=== PATIENT | male | born 1965 | race Caucasian/White ===

== ENCOUNTER 2022-01-12 23:26 | Inpatient (IN) | payer SELFPAY ==
[~2022-01-12] VITALS: Ht 185.4 cm; Wt 107.6 kg
[2022-01-12 23:47] LABS: BASO % 0 % (0-3); EOS % 0 % (0-3); HEMOGLOBIN 15.7 g/dL (13.0-17.5); LYMPH # 0.9 x10^3/uL (1.0-4.8); LYMPH % 10 % (24-48); MEAN CORPUSCULAR HEMOGLOBIN 33 pg (25-35); MEAN CORPUSCULAR HGB CONC 35 g/dL (31-37); MEAN CORPUSCULAR VOLUME 96 fL (79-100); MONO # 0.9 x10^3/uL (0.0-1.1); MONO % 9 % (0-9); NEUT # 7.5 x10^3/uL (1.8-7.7); NEUT % 80 % (31-73); PLATELET COUNT 144 x10^3/uL (140-400); RED BLOOD COUNT 4.69 x10^6/uL (4.30-5.70); WHITE BLOOD COUNT 9.3 x10^3/uL (4.0-11.0)
[2022-01-12 23:55] LABS: CALCIUM 8.6 mg/dL (8.5-10.1); CREATININE 1.2 mg/dL (0.7-1.3); GFR 62.6
[2022-01-12 23:58] LABS: RBC,URINE 0 /HPF (0-2)
[2022-01-12 23:59] LABS: BACTERIA,URINE MODERATE /HPF (0-FEW)
[2022-01-13] VITALS (7 sets, daily range): BP systolic 136–169; BP diastolic 80–97
[2022-01-13] MEDS ORDERED: ONDANSETRON PF 4 MG/2 ML VIAL. IVP ONE
[2022-01-13] MEDS ORDERED: TAMSULOSIN 0.4 MG CAP.ER.24H. PO ONE
[2022-01-13 00:01] LABS: ALBUMIN 3.8 g/dL (3.4-5.0); ALBUMIN/GLOBULIN RATIO 1.1 (1.0-1.7); TOTAL BILIRUBIN 3.2 mg/dL (0.2-1.0); TOTAL PROTEIN 7.3 g/dL (6.4-8.2)
[2022-01-13] MEDS: MORPHINE SULFATE 4 MG/ML INJ. IV/SQ PRN ×2 (00:07→02:19)
--- NOTE | 2022-01-13 01:02 | PHYS DOC ---
Past Medical History Past Medical History: Kidney Stone Additional Past Medical Histor: BILATERAL KIDNEY STONES. Past Surgical History: Other Additional Past Surgical Histo: KIDNEY STONES Smoking Status: Never Smoker Alcohol Use: None General Adult EDM: Chief Complaint: FLANK PAIN HPI: HPI: Patient is a 56 year old male with history of kidney stones presenting to the ED today complaining of 8 out of 10 bilateral flank pain with nausea, no vomiting, symptoms began 2 days ago. 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 He states today his symptoms got worse he decided to come to the ED to be evaluated. He states he has not taken any of the medicines that were prescribed for him yesterday. Review of Systems: Review of Systems: Constitutional: Denies fever or chills. [] Eyes: Denies change in visual acuity. [] HENT: Denies nasal congestion or sore throat. [] Respiratory: Denies cough or shortness of breath. [] Cardiovascular: Denies chest pain or edema. [] GI: Denies abdominal pain, nausea, vomiting, bloody stools or diarrhea. [] : Reports bilateral flank pain. Denies dysuria. [] Musculoskeletal: Denies back pain or joint pain. [] Integument: Denies rash. [] Neurologic: Denies headache, focal weakness or sensory changes. [] Psychiatric: Denies depression or anxiety. [] Heart Score: C/O Chest Pain: N/A Risk Factors: Risk Factors: DM, Current or recent (<one month) smoker, HTN, HLP, family history of CAD, obesity. Risk Scores: Score 0 - 3: 2.5% MACE over next 6 weeks - Discharge Home Score 4 - 6: 20.3% MACE over next 6 weeks - Admit for Clinical Observation Score 7 - 10: 72.7% MACE over next 6 weeks - Early Invasive Strategies Current Medications: Current Medications Medications (Trade) Dose Ordered Sig/Marilynn Start Time Stop Time Status Last Admin Dose Admin Ceftriaxone Sodium (Rocephin) 1 gm 1X ONCE 01/13/22 01:30 01/13/22 01:31 Morphine Sulfate (Morphine Sulfate) 4 mg PRN Q15MIN PRN 01/12/22 23:45 01/13/22 23:44 01/13/22 00:07 4 MG Ondansetron HCl (Zofran) 4 mg 1X ONCE 01/13/22 00:00 01/13/22 00:01 DC 01/13/22 00:07 4 MG Sodium Chloride 1,000 ml @ 1,000 mls/hr 1X ONCE 01/14/22 00:00 01/14/22 00:59 01/13/22 00:00 1,000 MLS/HR Tamsulosin HCl (Flomax) 0.4 mg 1X ONCE 01/13/22 00:00 01/13/22 00:01 DC 01/13/22 00:06 0.4 MG Allergies: Allergies: Allergies Coded Allergies Type Severity Reaction Last Updated Verified ketorolac Allergy Severe Anaphylaxis 01/12/22 Yes nitroglycerin Allergy Severe Anaphylaxis 01/12/22 Yes prednisone Allergy Severe Anaphylaxis 01/12/22 Yes Physical Exam: PE: Constitutional: Well developed, well nourished, no acute distress, non-toxic appearance. [] HENT: Normocephalic, atraumatic, bilateral external ears normal, oropharynx moist, no oral exudates, nose normal. [] Eyes: PERRLA, EOMI, conjunctiva normal, no discharge. [] Neck: Normal range of motion, no tenderness, supple, no stridor. [] Cardiovascular:Heart rate regular rhythm, no murmur [] Lungs & Thorax: Bilateral breath sounds clear to auscultation [] Abdomen: Bowel sounds normal, soft, no tenderness, no masses, no pulsatile masses. [] Skin: Warm, dry, no erythema, no rash. [] Back: No tenderness, mild bilateral CVA tenderness. [] Extremities: No tenderness, no cyanosis, no clubbing, ROM intact, no edema. [] Neurologic: Alert and oriented X 3, normal motor function, normal sensory function, no focal deficits noted. [] Psychologic: Affect normal, judgement normal, mood normal. [] Current Patient Data: Labs: Laboratory Tests Test 01/12/22 23:38 01/12/22 23:43 White Blood Count 9.3 x10^3/uL (4.0-11.0) Red Blood Count 4.69 x10^6/uL (4.30-5.70) Hemoglobin 15.7 g/dL (13.0-17.5) Hematocrit 45.0 % (39.0-53.0) Mean Corpuscular Volume 96 fL (79-100) Mean Corpuscular Hemoglobin 33 pg (25-35) Mean Corpuscular Hemoglobin Concent 35 g/dL (31-37) Red Cell Distribution Width 13.0 % (11.5-14.5) Platelet Count 144 x10^3/uL (140-400) Neutrophils (%) (Auto) 80 % (31-73) H Lymphocytes (%) (Auto) 10 % (24-48) L Monocytes (%) (Auto) 9 % (0-9) Eosinophils (%) (Auto) 0 % (0-3) Basophils (%) (Auto) 0 % (0-3) Neutrophils # (Auto) 7.5 x10^3/uL (1.8-7.7) Lymphocytes # (Auto) 0.9 x10^3/uL (1.0-4.8) L Monocytes # (Auto) 0.9 x10^3/uL (0.0-1.1) Eosinophils # (Auto) 0.0 x10^3/uL (0.0-0.7) Basophils # (Auto) 0.0 x10^3/uL (0.0-0.2) Sodium Level 141 mmol/L (136-145) Potassium Level 4.0 mmol/L (3.5-5.1) Chloride Level 106 mmol/L (98-107) Carbon Dioxide Level 24 mmol/L (21-32) Anion Gap 11 (6-14) Blood Urea Nitrogen 9 mg/dL (8-26) Creatinine 1.2 mg/dL (0.7-1.3) Estimated GFR (Cockcroft-Gault) 62.6 BUN/Creatinine Ratio 8 (6-20) Glucose Level 109 mg/dL (70-99) H Calcium Level 8.6 mg/dL (8.5-10.1) Total Bilirubin 3.2 mg/dL (0.2-1.0) H Aspartate Amino Transferase (AST) 12 U/L (15-37) L Alanine Aminotransferase (ALT) 16 U/L (16-63) Alkaline Phosphatase 46 U/L (46-116) Total Protein 7.3 g/dL (6.4-8.2) Albumin 3.8 g/dL (3.4-5.0) Albumin/Globulin Ratio 1.1 (1.0-1.7) Lipase 28 U/L (73-393) L Urine Collection Type Unknown Urine Color (Auto) Yellow Urine Turbidity Hazy Urine pH (Auto) 6.5 (<5.0-8.0) Urine Specific [place] 1.012 (1.000-1.030) Urine Protein (Auto) Negative mg/dL (Negative) Urine Glucose (Auto)(UA) Negative mg/dL (Negative) Urine Ketones (Auto) 20 mg/dL (Negative) Urine Blood (Auto) Small (Negative) Urine Nitrite Positive (Negative) Urine Bilirubin (Auto) Negative (Negative) Urine Urobilinogen (Auto) Normal mg/dL (Normal) Urine Leukocyte Esterase (Auto) Large (Negative) Urine RBC 0 /HPF (0-2) Urine WBC 5-10 /HPF (0-4) Urine Bacteria Moderate /HPF (0-FEW) Laboratory Tests 01/12/22 23:38 Laboratory Tests 01/12/22 23:38 Vital Signs: Vital Signs Date Time Temp Pulse Resp B/P (MAP) Pulse Ox O2 Delivery O2 Flow Rate FiO2 01/12/22 23:30 98.6 93 18 138/86 (103) 95 Room Air 98.6 EKG: EKG: [] Radiology/Procedures: Radiology/Procedures: [] Course & Med Decision Making: Course & Med Decision Making Pertinent Labs and Imaging studies reviewed. (See chart for details) This a 56-year-old male patient with history of kidney stones presenting today complaining of bilateral flank pain, symptoms for 2 days, also complaining of nausea. Was seen at a different facility yesterday and diagnosed with kidney stones. 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 Patient is afebrile. CBC with a normal WBC, hemoglobin and hematocrit are normal. CMP with bilirubin of 3.2 otherwise no acute findings. UA positive for small amount of blood, nitrates and large amount of leukocytes. Started on Rocephin. CT of the abdomen and pelvis noted for moderate left obstructive uropathy secon krys to a 10 x 5 mm ureteral calculus just distal to the pelvic brim, bilateral nonobstructing renal calculi, urinary bladder calculus, scattered colon diverticulosis, prostatomegaly Spoke with [facility] for urologist, they will follow-up with patient tomorrow Patient admitted under Dr. Tarik Queen Disclaimer: Bernice Disclaimer: This electronic medical record was generated, in whole or in part, using a voice recognition dictation system. Departure Departure Impression: Primary Impression: Acute pyelonephritis Additional Impressions: Left ureteral calculus Bilateral kidney stones Disposition: ADMITTED INPATIENT Condition: STABLE Referrals: NO PCP (PCP) CHRISTIANA MELTON SOLVENT RECOVERER January 13, 2022 01:02
[2022-01-13] MEDS ORDERED: cefTRIAXone IV Push 1 GM VIAL. IVP ONE (01:30)
[2022-01-13] MEDS ORDERED: ONDANSETRON PF 4 MG/2 ML VIAL. IVP PRN (02:00)
--- NOTE | 2022-01-13 02:27 | NUR ---
Pt summary report sent via tube system to [address] [place] [address] at 0224. Pt expected to go to inpatient room 673.
[2022-01-13] MEDS ORDERED: IV NORMAL SALINE 1000ML BAG 1,000 ML IV ONE (02:30)
[2022-01-13] MEDS: MORPHINE SULFATE 4 MG/ML INJ. IVP PRN ×4 (03:04→14:43)
[2022-01-13] MEDS ORDERED: ACETAMINOPHEN 325 MG TABLET. PO PRN (06:30)
--- NOTE | 2022-01-13 08:20 | PDOC1 ---
History and Physical Date of Admission Date of Admission DATE: 01/13/22 TIME: 08:11 Identification/Chief Complaint Chief Complaint Left flank pain Source Source: Patient History of Present Illness History of Present Illness Mr Arias is a 56 year old male with history of kidney stones presenting to the ED overnight complaining of 8 out of 10 bilateral flank pain with nausea, no vomiting, symptoms began 2 days ago. He was seen yesterday at [facility] in [place] and diagnosed with kidney stones. 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 He notes historically has had multiple kidney stones since age 19 at least 12 procedures. Febrile to 102.8 F. CBC with a normal WBC, hemoglobin and hematocrit are normal. CMP with bilirubin of 3.2 otherwise no acute findings. UA positive for small amount of blood, nitrates and large amount of leukocytes. Started on Rocephin in ED. CT of the abdomen and pelvis noted for moderate left obstructive uropathy secondary to a 10 x 5 mm ureteral calculus just distal to the pelvic brim, bilateral nonobstructing renal calculi, urinary bladder calculus, scattered colon diverticulosis, prostatomegaly Past Medical History Renal/: Benign prostatic enlarg. Past Surgical History Past Surgical History Ureteral stenting and ESWL Family History Family History: Hypertension Social History Smoke: No ALCOHOL: rare Drugs: None Current Problem List Problem List Problems Medical Problems: (1) Acute pyelonephritis Status: Acute (2) Bilateral kidney stones Status: Acute (3) Left ureteral calculus Status: Acute Current Medications Current Medications Current Medications Sodium Chloride 1,000 ml @ 1,000 mls/hr 1X ONCE IV Last administered on 01/13/22at 00:00; Start 01/14/22 at 00:00; Stop 01/14/22 at 00:59 Ondansetron HCl (Zofran) 4 mg 1X ONCE IVP Last administered on 01/13/22at 00:07; Start 01/13/22 at 00:00; Stop 01/13/22 at 00:01; Status DC Tamsulosin HCl (Flomax) 0.4 mg 1X ONCE PO Last administered on 01/13/22at 00:06; Start 01/13/22 at 00:00; Stop 01/13/22 at 00:01; Status DC Morphine Sulfate (Morphine Sulfate) 4 mg PRN Q15MIN PRN IV/SQ PAIN GREATER THAN 3/10 Last administered on 01/13/22at 02:19; Start 01/12/22 at 23:45; Stop 01/13/22 at 23:44 Ceftriaxone Sodium (Rocephin) 1 gm 1X ONCE IVP Last administered on 01/13/22at 03:02; Start 01/13/22 at 01:30; Stop 01/13/22 at 01:31; Status DC Ondansetron HCl (Zofran) 4 mg PRN Q8HRS PRN IVP NAUSEA/VOMITING 1ST CHOICE Last administered on 01/13/22at 03:09; Start 01/13/22 at 02:00; Stop 01/13/22 at 06:22; Status DC Morphine Sulfate (Morphine Sulfate) 4 mg PRN Q2HR PRN IVP SEVERE PAIN 7-10 Last administered on 01/13/22at 08:01; Start 01/13/22 at 02:00; Stop 01/14/22 at 01:59 Sodium Chloride 1,000 ml @ 75 mls/hr 1X ONCE IV Last administered on 01/13/22at 02:30; Start 01/13/22 at 02:30; Stop 01/13/22 at 15:49 Acetaminophen (Tylenol) 650 mg PRN Q8HRS PRN PO MILD PAIN / TEMP > 100.3'F Last administered on 01/13/22at 08:01; Start 01/13/22 at 06:30; Stop 01/13/22 at 08:06; Status DC Ondansetron HCl (Zofran) 4 mg PRN Q6HRS PRN IVP NAUSEA/VOMITING 1ST CHOICE; Start 01/13/22 at 06:30 Acetaminophen (Tylenol) 650 mg PRN Q6HRS PRN PO MILD PAIN / TEMP > 100.3'F; Start 01/13/22 at 08:15 Tamsulosin HCl (Flomax) 0.4 mg BID PO ; Start 01/13/22 at 09:00 Ciprofloxacin/ Dextrose 200 ml @ 200 mls/hr Q12HR IV ; Start 01/13/22 at 09:00 Allergies Allergies: Coded Allergies: ketorolac (Verified Allergy, Severe, Anaphylaxis, 01/12/22) nitroglycerin (Verified Allergy, Severe, Anaphylaxis, 01/12/22) prednisone (Verified Allergy, Severe, Anaphylaxis, 01/12/22) ROS General: YES: Chills; No: Night Sweats, Fatigue, Malaise, Appetite, Other PSYCHOLOGICAL ROS: No: Anxiety, Behavioral Disorder, Concentration difficultie, Decreased libido, Depression, Disorientation, Hallucinations, Hostility, Irritablity, Memory difficulties, Mood Swings, Obsessive thoughts, Physical abuse, Sexual abuse, Sleep disturbances, Suicidal ideation, Other Eyes: No Blurry vision, No Decreased vision, No Double vision, No Dry eyes, No Excessive tearing, No Eye Pain, No Itchy Eyes, No Loss of vision, No Photophobia, No Scotomata, No Uses contacts, No Uses glasses, No Other HEENT: No: Heacaches, Visual Changes, Hearing change, Nasal congestion, Nasal discharge, Oral lesions, Sinus pain, Sore Throat, Epistaxis, Sneezing, Snoring, Tinnitus, Vertigo, Vocal changes, Other ALLERGY AND IMMUNOLOGY: No: Hives, Insect Bite Sensitivity, Itchy/Watery Eyes, Nasal Congestion, Post Nasal Drip, Seasonal Allergies, Other Hematological and Lymphatic: No: Bleeding Problems, Blood Clots, Blood Transfusions, Brusing, Night Sweats, Pallor, Swollen Lymph Nodes, Other ENDOCRINE: No: Breast Changes, Galactorrhea, Hair Pattern Changes, Hot Flashes, Malaise/lethargy, Mood Swings, Palpitations, Polydipsia/polyuria, Skin Changes, Temperature Intolerance, Unexpected Weight Changes, Other Breast: No New/Changing Breast Lumps, No Nipple changes, No Nipple discharge, No Other Respiratory: No: Cough, Hemoptysis, Orthopnea, Pleuritic Pain, Shortness of breath, SOB with excertion, Sputum Changes, Stridor, Tachypnea, Wheezing, Other Cardiovascular: No Chest Pain, No Palpitations, No Orthopnea, No Paroxysmal Noc. Dyspnea, No Edema, No Lt Headedness, No Other Gastrointestinal: Yes Nausea, Yes Vomiting, Yes Abdominal Pain; No Diarrhea, No Constipation, No Melena, No Hematochezia, No Other Genitourinary: YES Flank Pain; No Dysuria, No Frequency, No Incontinence, No Hematuria, No Retention, No Discharge, No Urgency, No Pain, No Other, No , No , No , No , No , No , No Musculoskeletal: No Gait Disturbance, No Joint Pain, No Joint Stiffness, No Joint Swelling, No Muscle Pain, No Muscular Weakness, No Pain In:, No Swelling In:, No Other Neurological: No Behavorial Changes, No Bowel/Bladder ControlChng, No Confusion, No Dizziness, No Gait Disturbance, No Headaches, No Impaired Coord/balance, No Memory Loss, No Numbness/Tingling, No Seizures, No Speech Problems, No Tremors, No Visual Changes, No Weakness, No Other Skin: No Dry Skin, No Eczema, No Hair Changes, No Lumps, No Mole Changes, No Mottling, No Nail Changes, No Pruritus, No Rash, No Skin Lesion Changes, No Other, No Acne Physical Exam General: Alert, Oriented X3, Cooperative, moderate distress HEENT: Atraumatic, PERRLA, EOMI, Mucous membr. moist/pink Lungs: Clear to auscultation, Normal air movement Heart: S1S2, RRR, no thrills, no rubs, no gallops, no murmurs Abdomen: Normal bowel sounds, Soft, No hepatosplenomegaly, No masses, Other (Suprapubic and left flank tenderness) Rectal Exam: not examined Extremities: No clubbing, No cyanosis, No edema, Normal pulses, No tenderness/swelling Skin: No rashes, No breakdown, No significant lesion Neuro: Normal gait, Normal speech, Strength at 5/5 X4 ext, Normal tone, Sensation intact, Cranial nerves 3-12 NL, Reflexes 2+ Psych/Mental Status: Mental status NL, Mood NL Vitals Vitals Vital Signs Date Time Temp Pulse Resp B/P (MAP) Pulse Ox O2 Delivery O2 Flow Rate FiO2 01/13/22 08:01 94 Room Air 01/13/22 03:35 102.8 100 22 169/97 (121) 102.8 Labs Labs Laboratory Tests Test 01/12/22 23:38 01/12/22 23:43 White Blood Count 9.3 x10^3/uL (4.0-11.0) Red Blood Count 4.69 x10^6/uL (4.30-5.70) Hemoglobin 15.7 g/dL (13.0-17.5) Hematocrit 45.0 % (39.0-53.0) Mean Corpuscular Volume 96 fL (79-100) Mean Corpuscular Hemoglobin 33 pg (25-35) Mean Corpuscular Hemoglobin Concent 35 g/dL (31-37) Red Cell Distribution Width 13.0 % (11.5-14.5) Platelet Count 144 x10^3/uL (140-400) Neutrophils (%) (Auto) 80 % (31-73) Lymphocytes (%) (Auto) 10 % (24-48) Monocytes (%) (Auto) 9 % (0-9) Eosinophils (%) (Auto) 0 % (0-3) Basophils (%) (Auto) 0 % (0-3) Neutrophils # (Auto) 7.5 x10^3/uL (1.8-7.7) Lymphocytes # (Auto) 0.9 x10^3/uL (1.0-4.8) Monocytes # (Auto) 0.9 x10^3/uL (0.0-1.1) Eosinophils # (Auto) 0.0 x10^3/uL (0.0-0.7) Basophils # (Auto) 0.0 x10^3/uL (0.0-0.2) Sodium Level 141 mmol/L (136-145) Potassium Level 4.0 mmol/L (3.5-5.1) Chloride Level 106 mmol/L (98-107) Carbon Dioxide Level 24 mmol/L (21-32) Anion Gap 11 (6-14) Blood Urea Nitrogen 9 mg/dL (8-26) Creatinine 1.2 mg/dL (0.7-1.3) Estimated GFR (Cockcroft-Gault) 62.6 BUN/Creatinine Ratio 8 (6-20) Glucose Level 109 mg/dL (70-99) Calcium Level 8.6 mg/dL (8.5-10.1) Total Bilirubin 3.2 mg/dL (0.2-1.0) Aspartate Amino Transf (AST/SGOT) 12 U/L (15-37) Alanine Aminotransferase (ALT/SGPT) 16 U/L (16-63) Alkaline Phosphatase 46 U/L (46-116) Total Protein 7.3 g/dL (6.4-8.2) Albumin 3.8 g/dL (3.4-5.0) Albumin/Globulin Ratio 1.1 (1.0-1.7) Lipase 28 U/L (73-393) Urine Collection Type Unknown Urine Color (Auto) Yellow Urine Turbidity Hazy Urine pH (Auto) 6.5 (<5.0-8.0) Urine Specific [place] 1.012 (1.000-1.030) Urine Protein (Auto) Negative mg/dL (Negative) Urine Glucose (Auto)(UA) Negative mg/dL (Negative) Urine Ketones (Auto) 20 mg/dL (Negative) Urine Blood (Auto) Small (Negative) Urine Nitrite Positive (Negative) Urine Bilirubin (Auto) Negative (Negative) Urine Urobilinogen (Auto) Normal mg/dL (Normal) Urine Leukocyte Esterase (Auto) Large (Negative) Urine RBC 0 /HPF (0-2) Urine WBC 5-10 /HPF (0-4) Urine Bacteria Moderate /HPF (0-FEW) Laboratory Tests Test 01/12/22 23:38 01/12/22 23:43 White Blood Count 9.3 x10^3/uL (4.0-11.0) Red Blood Count 4.69 x10^6/uL (4.30-5.70) Hemoglobin 15.7 g/dL (13.0-17.5) Hematocrit 45.0 % (39.0-53.0) Mean Corpuscular Volume 96 fL (79-100) Mean Corpuscular Hemoglobin 33 pg (25-35) Mean Corpuscular Hemoglobin Concent 35 g/dL (31-37) Red Cell Distribution Width 13.0 % (11.5-14.5) Platelet Count 144 x10^3/uL (140-400) Neutrophils (%) (Auto) 80 % (31-73) Lymphocytes (%) (Auto) 10 % (24-48) Monocytes (%) (Auto) 9 % (0-9) Eosinophils (%) (Auto) 0 % (0-3) Basophils (%) (Auto) 0 % (0-3) Neutrophils # (Auto) 7.5 x10^3/uL (1.8-7.7) Lymphocytes # (Auto) 0.9 x10^3/uL (1.0-4.8) Monocytes # (Auto) 0.9 x10^3/uL (0.0-1.1) Eosinophils # (Auto) 0.0 x10^3/uL (0.0-0.7) Basophils # (Auto) 0.0 x10^3/uL (0.0-0.2) Sodium Level 141 mmol/L (136-145) Potassium Level 4.0 mmol/L (3.5-5.1) Chloride Level 106 mmol/L (98-107) Carbon Dioxide Level 24 mmol/L (21-32) Anion Gap 11 (6-14) Blood Urea Nitrogen 9 mg/dL (8-26) Creatinine 1.2 mg/dL (0.7-1.3) Estimated GFR (Cockcroft-Gault) 62.6 BUN/Creatinine Ratio 8 (6-20) Glucose Level 109 mg/dL (70-99) Calcium Level 8.6 mg/dL (8.5-10.1) Total Bilirubin 3.2 mg/dL (0.2-1.0) Aspartate Amino Transf (AST/SGOT) 12 U/L (15-37) Alanine Aminotransferase (ALT/SGPT) 16 U/L (16-63) Alkaline Phosphatase 46 U/L (46-116) Total Protein 7.3 g/dL (6.4-8.2) Albumin 3.8 g/dL (3.4-5.0) Albumin/Globulin Ratio 1.1 (1.0-1.7) Lipase 28 U/L (73-393) Urine Collection Type Unknown Urine Color (Auto) Yellow Urine Turbidity Hazy Urine pH (Auto) 6.5 (<5.0-8.0) Urine Specific [place] 1.012 (1.000-1.030) Urine Protein (Auto) Negative mg/dL (Negative) Urine Glucose (Auto)(UA) Negative mg/dL (Negative) Urine Ketones (Auto) 20 mg/dL (Negative) Urine Blood (Auto) Small (Negative) Urine Nitrite Positive (Negative) Urine Bilirubin (Auto) Negative (Negative) Urine Urobilinogen (Auto) Normal mg/dL (Normal) Urine Leukocyte Esterase (Auto) Large (Negative) Urine RBC 0 /HPF (0-2) Urine WBC 5-10 /HPF (0-4) Urine Bacteria Moderate /HPF (0-FEW) Images Images CT of the abdomen and pelvis noted for moderate left obstructive uropathy secondary to a 10 x 5 mm ureteral calculus just distal to the pelvic brim, bilateral nonobstructing renal calculi, urinary bladder calculus, scattered colon diverticulosis, prostatomegaly VTE Prophylaxis Ordered VTE Prophylaxis Devices: Contraindicated VTE Pharmacological Prophylaxi: No Assessment/Plan Assessment/Plan Left hydroureter - due to obstructive uropathy with nephrolithiasis, signs of sepsis. IV fluids, pain medication. Has not had Toradol. Flomax. Urology consulted for nephrolithiasis. Tentative plan for ureteral stenting he is not comfortable with this advised that diameter stone is an estimate Sepsis - febrile, tachycardic. change to cipro given prostatomegaly. Elevated bilirubin - will maintain bowel regimen FEN - NPO PPX - SCDs FULL CODE Dispo - inpatient Justifications for Admission Other Justification MONICA CHÁVEZ MD January 13, 2022 08:20
[2022-01-13] MEDS: CIPROFLOXACIN 400MG PREMIX 200 ML IV SCH ×2 (09:21→21:04)
[2022-01-13] MEDS ORDERED: HYDROmorphone 2 MG/ML INJ. IVP PRN (09:45)
[2022-01-13] MEDS ORDERED: fentaNYL PF VIAL 100 MCG/2 ML VIAL IVP PRN ×2 (09:45)
[2022-01-13] MEDS ORDERED: IV RINGERS,LACTATED 1000ML 1,000 ML IV SCH (09:45)
[2022-01-13] MEDS ORDERED: MORPHINE SULFATE 2 MG/ML INJ. IVP PRN (09:45)
[2022-01-13] MEDS ORDERED: PROCHLORPERAZINE 10 MG/2 ML VIAL. IVP PRN (09:45)
--- NOTE | 2022-01-13 10:28 | PDOC2 ---
UROLOGY CONSULT Date of Service DATE: 01/13/22 TIME: 10:18 Reason for Consult Reason for Consult: ureter stone Identification/Chief Complaint Chief Complaint flank pain History of Present Illness Reason for Visit: 56yo male with PMH of kidney stones presented to the ER for bilateral flank pain. STates pain began about a month ago and has been intermittent. He was seen at two other ERs over the past week for the same and diagnosed with ureter stone and UTI at that time. He was given prescription for bactrim but he did not fill this or take it. In the ER he was found to have 1cm distal left ureter stone. He became febrile up to 102.8F overnight. He denies dysuria, gross hematuria. He has had stones before, requiring ureteroscopy and ESWL. He is upset that we are recommending stent placement and not stone extraction. He also has bladder stone. He endorses slow stream, urinary frequency, straining, nocturia. He has history of urinary retention requiring malagon in the past but states that resolved. He does not take any medications for this. Past Medical History Cardiovascular: No pertinent hx Renal/: Benign prostatic enlarg. Past Surgical History Past Surgical History: Other (ureteroscopy) Family History Family History: Kidney Disease Social History No ALCOHOL: none Current Medications Current Medications Current Medications Acetaminophen (Tylenol) 650 mg PRN Q6HRS PRN PO MILD PAIN / TEMP > 100.3'F; Start 01/13/22 at 08:15 Acetaminophen (Tylenol) 650 mg PRN Q8HRS PRN PO MILD PAIN / TEMP > 100.3'F Last administered on 01/13/22at 08:01; Start 01/13/22 at 06:30; Stop 01/13/22 at 08:06; Status DC Ceftriaxone Sodium (Rocephin) 1 gm 1X ONCE IVP Last administered on 01/13/22at 03:02; Start 01/13/22 at 01:30; Stop 01/13/22 at 01:31; Status DC Ciprofloxacin/ Dextrose 200 ml @ 200 mls/hr Q12HR IV Last administered on 01/13/22at 09:21; Start 01/13/22 at 09:00 Fentanyl Citrate (Fentanyl 2ml Vial) 25 mcg PRN Q5MIN PRN IVP MILD PAIN 1-3; Start 01/13/22 at 09:45; Stop 01/13/22 at 20:00 Fentanyl Citrate (Fentanyl 2ml Vial) 50 mcg PRN Q5MIN PRN IVP MODERATE PAIN 4- 6; Start 01/13/22 at 09:45; Stop 01/13/22 at 20:00 Hydromorphone HCl (Dilaudid) 0.5 mg PRN Q10MIN PRN IVP SEVERE PAIN 7-10, 2nd CHOICE; Start 01/13/22 at 09:45; Stop 01/13/22 at 20:00 Morphine Sulfate (Morphine Sulfate) 1 mg PRN Q10MIN PRN IVP SEVERE PAIN 7-10; Start 01/13/22 at 09:45; Stop 01/13/22 at 20:00 Morphine Sulfate (Morphine Sulfate) 4 mg PRN Q15MIN PRN IV/SQ PAIN GREATER THAN 3/10 Last administered on 01/13/22at 02:19; Start 01/12/22 at 23:45; Stop 01/13/22 at 23:44 Morphine Sulfate (Morphine Sulfate) 4 mg PRN Q2HR PRN IVP SEVERE PAIN 7-10 Last administered on 01/13/22at 08:01; Start 01/13/22 at 02:00; Stop 01/14/22 at 01:59 Ondansetron HCl (Zofran) 4 mg 1X ONCE IVP Last administered on 01/13/22at 00:07; Start 01/13/22 at 00:00; Stop 01/13/22 at 00:01; Status DC Ondansetron HCl (Zofran) 4 mg PRN Q6HRS PRN IVP NAUSEA/VOMITING 1ST CHOICE; Start 01/13/22 at 06:30 Ondansetron HCl (Zofran) 4 mg PRN Q8HRS PRN IVP NAUSEA/VOMITING 1ST CHOICE Last administered on 01/13/22at 03:09; Start 01/13/22 at 02:00; Stop 01/13/22 at 06:22; Status DC Prochlorperazine Edisylate (Compazine) 5 mg PACU PRN PRN IVP NAUSEA, MRX1; Start 01/13/22 at 09:45; Stop 01/14/22 at 09:44; Status UNV Ringer's Solution 1,000 ml @ 30 mls/hr Q24H IV ; Start 01/13/22 at 09:45; Stop 01/13/22 at 21:44 Sodium Chloride 1,000 ml @ 75 mls/hr 1X ONCE IV Last administered on 01/13/22at 02:30; Start 01/13/22 at 02:30; Stop 01/13/22 at 15:49 Sodium Chloride 1,000 ml @ 1,000 mls/hr 1X ONCE IV Last administered on 01/13/22at 00:00; Start 01/14/22 at 00:00; Stop 01/14/22 at 00:59 Tamsulosin HCl (Flomax) 0.4 mg 1X ONCE PO Last administered on 01/13/22at 00:06; Start 01/13/22 at 00:00; Stop 01/13/22 at 00:01; Status DC Tamsulosin HCl (Flomax) 0.4 mg BID PO ; Start 01/13/22 at 09:00 Allergies Allergies: Coded Allergies: ketorolac (Verified Allergy, Severe, Anaphylaxis, 01/12/22) nitroglycerin (Verified Allergy, Severe, Anaphylaxis, 01/12/22) prednisone (Verified Allergy, Severe, Anaphylaxis, 01/12/22) ROS Review Of Systems: CONSTITUTIONAL: +fever chills EYES: No recent changes SKIN: No rash or itching CARDIOVASCULAR: No chest pain, syncope, palpitations, or edema RESPIRATORY: No SOB or cough GASTROINTESTINAL: + nausea abdominal pain NEUROLOGICAL: No headaches or weakness ENDOCRINE: No cold or heat intolerance GENITOURINARY: as in hpi MUSCULOSKELETAL: No back pain or joint pain LYMPHATICS: No enlarged lymph nodes PSYCHIATRIC: No anxiety or depression Physical Exam Physical Exam: General: Pleasant, no acute distress, well groomed Eyes: conjunctiva anicteric, eyes full range of motion ENT: moist oral mucosa, normal dentition Neck: Trachea midline, no visual masses Respiratory: unlabored breathing, not using accessory muscles Cardiovascular: Regular rate and rhythm, no peripheral edema Abdomen: tender, nondistended, no hepatosplenomegaly, no masses Skin: no rashes or skin lesions on visualized skin Psych: normal mood, affect. Alert and oriented x 3. Vitals VITALS Vital Signs Date Time Temp Pulse Resp B/P (MAP) Pulse Ox O2 Delivery O2 Flow Rate FiO2 01/13/22 08:31 94 Room Air 01/13/22 07:00 101.1 103 20 155/90 (111) 101.1 Labs Labs Laboratory Tests Test 01/12/22 23:38 01/12/22 23:43 01/13/22 09:28 White Blood Count 9.3 x10^3/uL (4.0-11.0) Red Blood Count 4.69 x10^6/uL (4.30-5.70) Hemoglobin 15.7 g/dL (13.0-17.5) Hematocrit 45.0 % (39.0-53.0) Mean Corpuscular Volume 96 fL (79-100) Mean Corpuscular Hemoglobin 33 pg (25-35) Mean Corpuscular Hemoglobin Concent 35 g/dL (31-37) Red Cell Distribution Width 13.0 % (11.5-14.5) Platelet Count 144 x10^3/uL (140-400) Neutrophils (%) (Auto) 80 % (31-73) Lymphocytes (%) (Auto) 10 % (24-48) Monocytes (%) (Auto) 9 % (0-9) Eosinophils (%) (Auto) 0 % (0-3) Basophils (%) (Auto) 0 % (0-3) Neutrophils # (Auto) 7.5 x10^3/uL (1.8-7.7) Lymphocytes # (Auto) 0.9 x10^3/uL (1.0-4.8) Monocytes # (Auto) 0.9 x10^3/uL (0.0-1.1) Eosinophils # (Auto) 0.0 x10^3/uL (0.0-0.7) Basophils # (Auto) 0.0 x10^3/uL (0.0-0.2) Sodium Level 141 mmol/L (136-145) Potassium Level 4.0 mmol/L (3.5-5.1) Chloride Level 106 mmol/L (98-107) Carbon Dioxide Level 24 mmol/L (21-32) Anion Gap 11 (6-14) Blood Urea Nitrogen 9 mg/dL (8-26) Creatinine 1.2 mg/dL (0.7-1.3) Estimated GFR (Cockcroft-Gault) 62.6 BUN/Creatinine Ratio 8 (6-20) Glucose Level 109 mg/dL (70-99) Calcium Level 8.6 mg/dL (8.5-10.1) Total Bilirubin 3.2 mg/dL (0.2-1.0) Aspartate Amino Transf (AST/SGOT) 12 U/L (15-37) Alanine Aminotransferase (ALT/SGPT) 16 U/L (16-63) Alkaline Phosphatase 46 U/L (46-116) Total Protein 7.3 g/dL (6.4-8.2) Albumin 3.8 g/dL (3.4-5.0) Albumin/Globulin Ratio 1.1 (1.0-1.7) Lipase 28 U/L (73-393) Urine Collection Type Unknown Urine Color (Auto) Yellow Urine Turbidity Hazy Urine pH (Auto) 6.5 (<5.0-8.0) Urine Specific [place] 1.012 (1.000-1.030) Urine Protein (Auto) Negative mg/dL (Negative) Urine Glucose (Auto)(UA) Negative mg/dL (Negative) Urine Ketones (Auto) 20 mg/dL (Negative) Urine Blood (Auto) Small (Negative) Urine Nitrite Positive (Negative) Urine Bilirubin (Auto) Negative (Negative) Urine Urobilinogen (Auto) Normal mg/dL (Normal) Urine Leukocyte Esterase (Auto) Large (Negative) Urine RBC 0 /HPF (0-2) Urine WBC 5-10 /HPF (0-4) Urine Bacteria Moderate /HPF (0-FEW) SARS-CoV-2 Antigen (Rapid) Negative (NEGATIVE) Laboratory Tests Test 01/12/22 23:38 01/12/22 23:43 01/13/22 09:28 White Blood Count 9.3 x10^3/uL (4.0-11.0) Red Blood Count 4.69 x10^6/uL (4.30-5.70) Hemoglobin 15.7 g/dL (13.0-17.5) Hematocrit 45.0 % (39.0-53.0) Mean Corpuscular Volume 96 fL (79-100) Mean Corpuscular Hemoglobin 33 pg (25-35) Mean Corpuscular Hemoglobin Concent 35 g/dL (31-37) Red Cell Distribution Width 13.0 % (11.5-14.5) Platelet Count 144 x10^3/uL (140-400) Neutrophils (%) (Auto) 80 % (31-73) Lymphocytes (%) (Auto) 10 % (24-48) Monocytes (%) (Auto) 9 % (0-9) Eosinophils (%) (Auto) 0 % (0-3) Basophils (%) (Auto) 0 % (0-3) Neutrophils # (Auto) 7.5 x10^3/uL (1.8-7.7) Lymphocytes # (Auto) 0.9 x10^3/uL (1.0-4.8) Monocytes # (Auto) 0.9 x10^3/uL (0.0-1.1) Eosinophils # (Auto) 0.0 x10^3/uL (0.0-0.7) Basophils # (Auto) 0.0 x10^3/uL (0.0-0.2) Sodium Level 141 mmol/L (136-145) Potassium Level 4.0 mmol/L (3.5-5.1) Chloride Level 106 mmol/L (98-107) Carbon Dioxide Level 24 mmol/L (21-32) Anion Gap 11 (6-14) Blood Urea Nitrogen 9 mg/dL (8-26) Creatinine 1.2 mg/dL (0.7-1.3) Estimated GFR (Cockcroft-Gault) 62.6 BUN/Creatinine Ratio 8 (6-20) Glucose Level 109 mg/dL (70-99) Calcium Level 8.6 mg/dL (8.5-10.1) Total Bilirubin 3.2 mg/dL (0.2-1.0) Aspartate Amino Transf (AST/SGOT) 12 U/L (15-37) Alanine Aminotransferase (ALT/SGPT) 16 U/L (16-63) Alkaline Phosphatase 46 U/L (46-116) Total Protein 7.3 g/dL (6.4-8.2) Albumin 3.8 g/dL (3.4-5.0) Albumin/Globulin Ratio 1.1 (1.0-1.7) Lipase 28 U/L (73-393) Urine Collection Type Unknown Urine Color (Auto) Yellow Urine Turbidity Hazy Urine pH (Auto) 6.5 (<5.0-8.0) Urine Specific [place] 1.012 (1.000-1.030) Urine Protein (Auto) Negative mg/dL (Negative) Urine Glucose (Auto)(UA) Negative mg/dL (Negative) Urine Ketones (Auto) 20 mg/dL (Negative) Urine Blood (Auto) Small (Negative) Urine Nitrite Positive (Negative) Urine Bilirubin (Auto) Negative (Negative) Urine Urobilinogen (Auto) Normal mg/dL (Normal) Urine Leukocyte Esterase (Auto) Large (Negative) Urine RBC 0 /HPF (0-2) Urine WBC 5-10 /HPF (0-4) Urine Bacteria Moderate /HPF (0-FEW) SARS-CoV-2 Antigen (Rapid) Negative (NEGATIVE) Assessment/Plan Assessment/Plan I reviewed CT a/p images. Moderate left hydronephrosis, 1cm distal left ureter stone UA with bacteria. 102.8F Tmax. Concern for sepsis. Recommend left renal unit decompression to facilitate treatment of infection. Cystoscopy, left ureteral stent placement reviewed with patient. Initially he declined to undergo, but I had long discussion with him reviewing risks of leaving this untreated as well as risks of stone manipulation during active infection. He verbalized understanding and he agrees to undergo. He will need ureteroscopy in 10-14 days after infection has resolved. We will arrange this with him. Keep NPO. procedure at [address] Cervantes. Bladder stone Likely has poor bladder emptying secondary to prostate enlargement Check PVR. Tamsulosin. Cystolitholapaxy concurrent with ureteroscopy after infection resolved as above. LACI DESIR January 13, 2022 10:27
[2022-01-13] MEDS: TAMSULOSIN 0.4 MG CAP.ER.24H. PO SCH ×2 (11:00→19:33)
[2022-01-13] MEDS ORDERED: IOHEXOL 300 MG/ML 50 ML VIAL. ONE (11:54)
--- NOTE | 2022-01-13 12:23 | RAD ---
PQRS Compliance Statement: One or more of the following individualized dose reduction techniques were utilized for this examinat ion: 1. Automated exposure control 2. Adjustment of the mA and/or kV according to patient size 3. Use of iterative reconstruction technique CT ABDOMEN+PELVIS WO Clinical Indication: Reason: flank pain hx of kidney stones / Spl. Instructions: / History: Comparison: None. Technique: Helical CT imaging of the abdomen and pelvis is performed without IV or oral contrast. Findings: Evaluation of solid organs and bowel is limited without oral and IV contrast, decreasing sensitivity for detection of abnormal findings. There is severe elevation of the right hemidiaphragm. This probably chronic atelectasis or scarring i n the right lung base adjacent to the elevated hemidiaphragm. There is mild atelectasis in the office support assistant ior left lower lobe. The great vessels are normal caliber. There is coronary artery disease. The card iac size is normal. The liver, gallbladder, spleen, pancreas, adrenal glands, and abdominal aorta caliber are normal. There is a 1 cm nonobstructing right renal calculus. There is no right hydronephrosis. There is right extrarenal pelvis. There is a 4.4 cm cyst in the upper pole the right kidney that does not require f ollow-up. There is left perinephric stranding. There is a 6 mm calculus in the lower pole the left kidney. Ther e is moderate left hydroureteronephrosis secondary to a 10 x 5 mm ureteral calculus just distal to th e pelvic brim, image 237. The more distal left ureter is decompressed. The right ureter is unremarkab le. There is a 1.5 x 1.7 cm calculus in the urinary bladder. There is no urinary bladder wall thicken ing. The stomach is unremarkable. There is no small bowel obstruction. The appendix is normal. There is sc attered colon diverticulosis. There is no colon wall thickening. There is no abdominal adenopathy. The prostate is mildly enlarged. There is no pelvic free fluid. There is bilateral L5 spondylolysis. There is grade 1 anterolisthesis of L5 on S1. There is a probabl e small bone island in the intertrochanteric left femur. IMPRESSION: 1. There is moderate left obstructive uropathy secondary to a 10 x 5 mm ureteral calculus just dista l to the pelvic brim. 2. Bilateral nonobstructing renal calculi. 3. There is a urinary bladder calculus. 4. There is scattered colon diverticulosis. 5. Mild prostatomegaly. 6. Severe elevation of right hemidiaphragm. Electronically signed by: Evan Painting MD (01/13/2022 1:19 AM) [facility]
[2022-01-13] MEDS ORDERED: LIDOCAINE 2% PF 5 ML VIAL. ONE ×2 (12:30→12:52)
[2022-01-13] MEDS ORDERED: ONDANSETRON PF 4 MG/2 ML VIAL. ONE ×2 (12:30→12:36)
[2022-01-13] MEDS ORDERED: PROPOFOL 10 MG/ML (20ML) VIAL. IV ONE (12:30)
[2022-01-13] MEDS ORDERED: DEXAMETHASONE SOD PHOS 4 MG/ML VIAL ONE (12:30)
[2022-01-13] MEDS ORDERED: MIDAZOLAM HCL/PF 2 MG/2 ML VIAL. ONE (12:32)
[2022-01-13] MEDS ORDERED: SCOPOLAMINE 1.5MG PATCH. TD ONE ×2 (12:36→12:45)
[2022-01-13] MEDS: ONDANSETRON PF 4 MG/2 ML VIAL. IVP PRN ×3 (12:40→22:33)
[2022-01-13] MEDS: IV RINGERS,LACTATED 1000ML 1,000 ML IV SCH ×2 (13:15→19:06)
[2022-01-13] MEDS ORDERED: 0.9 % SODIUM CHLORIDE 10 ML DISP.SYRIN. IV PRN (13:15)
[2022-01-13] MEDS ORDERED: IV NORMAL SALINE 1000ML BAG 1,000 ML IV SCH (13:15)
[2022-01-13] MEDS ORDERED: NALOXONE 0.4 MG/ML VIAL. IV PRN (13:15)
--- NOTE | 2022-01-13 13:15 | PDOC4 ---
OPERATIVE NOTE Date: Date: January 13, 2022 Pre-Op Diagnosis: uti left hydronephrosis Left distal stone Post-Op Diagnosis: 1. UTI 2. Left distal ureter stone 3. Hydronephrosis #4 bladder stone Procedure Performed: Cystoscopy left retrograde pyelography interpretation Left stent placement Surgeon: Dr. Cervantes Anesthesia Type: General Blood Loss: 0 Specimans Obtained: None Findings: Left distal ureter stone. Large bladder stone 3 cm Complications: None evident Operative Note: Patient was taken to the procedure room placed bridge anesthesia supine position. He was then switched to dorsolithotomy position. He was prepped and draped your sterile fashion. Timeout was performed, SCDs were attached, antibiotic were previously administered. A 21 [place] rigid cystoscope was advanced per urethra into the bladder. He had trilobar hypertrophy with obstructive median lobe. A large b ladder stone was noted posterior to the median lobe. Left ureter orifice was cannulated with a 5 Dominican open ureteral catheter. Gentle retrograde pyelography visualize obstructed distal ureter stone with contrast barely making passed out. A sensor wire was placed past the stone to the kidney 6 x 26 stent was placed over the wire, cloudy urine in return. bladder was emptied, patient was woken to the PACU in stable condition. deferred stone management once urine sterilizes achieved in 10 to 14 days. LORE CERVANTES MD January 13, 2022 13:15
[2022-01-13] MEDS: ACETAMINOPHEN 325 MG TABLET. PO PRN ×2 (15:18→22:33)
[2022-01-13] MEDS ORDERED: traMADol 50 MG TABLET PO PRN (15:30)
--- NOTE | 2022-01-13 15:56 | NUR ---
TRANSFER NOTE AFTER INITIAL REPORT CALLED TO 4TH FLOOR, CALLED BACK TO UPDATE ON MOST RECENT TEMP, AND ADMINISTRATION OF APAP FOR FEVER.
[2022-01-13] MEDS: MORPHINE SULFATE 2 MG/ML INJ. IVP PRN ×2 (16:30→19:33)
[2022-01-14] MEDS ORDERED: IV NORMAL SALINE 1000ML BAG 1,000 ML IV ONE
[2022-01-14 02:48] VITALS: BP 126/84
[2022-01-14] MEDS: oxyCODONE IR 5 MG TABLET PO PRN ×2 (05:36→13:46)
[2022-01-14] MEDS: ACETAMINOPHEN 325 MG TABLET. PO PRN ×2 (05:36→15:18)
[2022-01-14] MEDS: IV RINGERS,LACTATED 1000ML 1,000 ML IV SCH ×2 (05:38→15:18)
--- NOTE | 2022-01-14 05:48 | NUR ---
Assisted to toilet to void. Tylenol and Roxicodone given po.
[2022-01-14 06:43] VITALS: BP 143/87
[2022-01-14 07:26] LABS: BASO % 1 % (0-3); EOS # 0.1 x10^3/uL (0.0-0.7); EOS % 1 % (0-3); HEMATOCRIT 41.4 % (39.0-53.0); HEMOGLOBIN 14.2 g/dL (13.0-17.5); LYMPH # 0.9 x10^3/uL (1.0-4.8); LYMPH % 12 % (24-48); MEAN CORPUSCULAR HEMOGLOBIN 33 pg (25-35); MEAN CORPUSCULAR HGB CONC 34 g/dL (31-37); MEAN CORPUSCULAR VOLUME 96 fL (79-100); MONO # 0.9 x10^3/uL (0.0-1.1); MONO % 12 % (0-9); NEUT # 5.7 x10^3/uL (1.8-7.7); NEUT % 75 % (31-73); PLATELET COUNT 100 x10^3/uL (140-400); RED BLOOD COUNT 4.32 x10^6/uL (4.30-5.70); RED CELL DISTRIBUTION WIDTH 12.6 % (11.5-14.5); WHITE BLOOD COUNT 7.6 x10^3/uL (4.0-11.0)
[2022-01-14 07:35] LABS: ALBUMIN 2.9 g/dL (3.4-5.0); ALBUMIN/GLOBULIN RATIO 0.8 (1.0-1.7); CREATININE 1.1 mg/dL (0.7-1.3); GFR 69.2; POTASSIUM 3.9 mmol/L (3.5-5.1); TOTAL BILIRUBIN 1.8 mg/dL (0.2-1.0); TOTAL PROTEIN 6.4 g/dL (6.4-8.2)
[2022-01-14] MEDS: TAMSULOSIN 0.4 MG CAP.ER.24H. PO SCH ×2 (09:11→20:52)
[2022-01-14] MEDS: CIPROFLOXACIN 400MG PREMIX 200 ML IV SCH ×2 (09:11→20:52)
[2022-01-14 11:19] VITALS: BP 121/78
[2022-01-14] MEDS: ONDANSETRON PF 4 MG/2 ML VIAL. IVP PRN (13:35)
--- NOTE | 2022-01-14 13:55 | NUR ---
RAINA Orr bladder scanned pt got over 500mls. St cath and got 500cc tea color urine. Increase Flomax. Cont. monitor.
--- NOTE | 2022-01-14 14:12 | PN ---
PROGRESS NOTES Date of Service DATE: 01/14/22 TIME: 14:09 Subjective Subjective Pt reports pain improving, though some still during voiding difficulty voiding, small amounts. Hx retention after surgery in the past. Objective Objective Vital Signs Date Time Temp Pulse Resp B/P (MAP) Pulse Ox O2 Delivery O2 Flow Rate FiO2 01/14/22 13:46 Room Air 01/14/22 11:19 99.1 86 22 121/78 (92) 96 99.1 01/13/22 15:13 2.0 Intake and Output 01/14/22 07:00 Intake Total 2500 ml Output Total 650 ml Balance 1850 ml Intake Oral 700 ml IV Total 600 ml Blood Product IV Normal Saline Flush 1200 ml Output Urine Total 650 ml Estimated Blood Loss 0 ml Physical Exam Physical Exam NAD nonlabored respiroations AOx3 mild ttp abd COMMENT Pt prepped appropriately. 18Fr malagon inserted into bladder without difficulty. Drained ~600mL yellow urine. Malagon removed. Diagnosis PROBLEM LIST Problems Medical Problems: (1) Acute pyelonephritis Status: Acute (2) Bilateral kidney stones Status: Acute (3) Left ureteral calculus Status: Acute Assessment Assessment Problems Medical Problems: (1) Acute pyelonephritis Status: Acute (2) Bilateral kidney stones Status: Acute (3) Left ureteral calculus Status: Acute Plan Plan of Care 1cm distal left ureter stone, s/p left ureteral stent placement. Febrile again this AM Continue abx, IVF He will need ureteroscopy in 10-14 days after infection has resolved. We will arrange this with him. Stent pain medications Bladder stone, urinary retention Likely has poor bladder emptying secondary to prostate enlargement Flomax bid. Bladder scan/CIC protocol. d/w RN. Cystolitholapaxy concurrent with ureteroscopy after infection resolved as above. Comment Review of Relevant I have reviewed the following items maurice (where applicable) has been applied. Labs Laboratory Tests Test 01/12/22 23:38 01/12/22 23:43 01/13/22 09:28 01/14/22 07:00 White Blood Count 9.3 x10^3/uL (4.0-11.0) 7.6 x10^3/uL (4.0-11.0) Red Blood Count 4.69 x10^6/uL (4.30-5.70) 4.32 x10^6/uL (4.30-5.70) Hemoglobin 15.7 g/dL (13.0-17.5) 14.2 g/dL (13.0-17.5) Hematocrit 45.0 % (39.0-53.0) 41.4 % (39.0-53.0) Mean Corpuscular Volume 96 fL (79-100) 96 fL (79-100) Mean Corpuscular Hemoglobin 33 pg (25-35) 33 pg (25-35) Mean Corpuscular Hemoglobin Concent 35 g/dL (31-37) 34 g/dL (31-37) Red Cell Distribution Width 13.0 % (11.5-14.5) 12.6 % (11.5-14.5) Platelet Count 144 x10^3/uL (140-400) 100 x10^3/uL (140-400) Neutrophils (%) (Auto) 80 % (31-73) 75 % (31-73) Lymphocytes (%) (Auto) 10 % (24-48) 12 % (24-48) Monocytes (%) (Auto) 9 % (0-9) 12 % (0-9) Eosinophils (%) (Auto) 0 % (0-3) 1 % (0-3) Basophils (%) (Auto) 0 % (0-3) 1 % (0-3) Neutrophils # (Auto) 7.5 x10^3/uL (1.8-7.7) 5.7 x10^3/uL (1.8-7.7) Lymphocytes # (Auto) 0.9 x10^3/uL (1.0-4.8) 0.9 x10^3/uL (1.0-4.8) Monocytes # (Auto) 0.9 x10^3/uL (0.0-1.1) 0.9 x10^3/uL (0.0-1.1) Eosinophils # (Auto) 0.0 x10^3/uL (0.0-0.7) 0.1 x10^3/uL (0.0-0.7) Basophils # (Auto) 0.0 x10^3/uL (0.0-0.2) 0.0 x10^3/uL (0.0-0.2) Sodium Level 141 mmol/L (136-145) 140 mmol/L (136-145) Potassium Level 4.0 mmol/L (3.5-5.1) 3.9 mmol/L (3.5-5.1) Chloride Level 106 mmol/L (98-107) 107 mmol/L (98-107) Carbon Dioxide Level 24 mmol/L (21-32) 24 mmol/L (21-32) Anion Gap 11 (6-14) 9 (6-14) Blood Urea Nitrogen 9 mg/dL (8-26) 9 mg/dL (8-26) Creatinine 1.2 mg/dL (0.7-1.3) 1.1 mg/dL (0.7-1.3) Estimated GFR (Cockcroft-Gault) 62.6 69.2 BUN/Creatinine Ratio 8 (6-20) 8 (6-20) Glucose Level 109 mg/dL (70-99) 103 mg/dL (70-99) Calcium Level 8.6 mg/dL (8.5-10.1) 8.0 mg/dL (8.5-10.1) Total Bilirubin 3.2 mg/dL (0.2-1.0) 1.8 mg/dL (0.2-1.0) Aspartate Amino Transf (AST/SGOT) 12 U/L (15-37) 10 U/L (15-37) Alanine Aminotransferase (ALT/SGPT) 16 U/L (16-63) 6 U/L (16-63) Alkaline Phosphatase 46 U/L (46-116) 33 U/L (46-116) Total Protein 7.3 g/dL (6.4-8.2) 6.4 g/dL (6.4-8.2) Albumin 3.8 g/dL (3.4-5.0) 2.9 g/dL (3.4-5.0) Albumin/Globulin Ratio 1.1 (1.0-1.7) 0.8 (1.0-1.7) Lipase 28 U/L (73-393) Urine Collection Type Unknown Urine Color (Auto) Yellow Urine Turbidity Hazy Urine pH (Auto) 6.5 (<5.0-8.0) Urine Specific [place] 1.012 (1.000-1.030) Urine Protein (Auto) Negative mg/dL (Negative) Urine Glucose (Auto)(UA) Negative mg/dL (Negative) Urine Ketones (Auto) 20 mg/dL (Negative) Urine Blood (Auto) Small (Negative) Urine Nitrite Positive (Negative) Urine Bilirubin (Auto) Negative (Negative) Urine Urobilinogen (Auto) Normal mg/dL (Normal) Urine Leukocyte Esterase (Auto) Large (Negative) Urine RBC 0 /HPF (0-2) Urine WBC 5-10 /HPF (0-4) Urine Bacteria Moderate /HPF (0-FEW) Coronavirus (COVID-19)(PCR) Not detected (NOT DETECTD) SARS-CoV-2 Antigen (Rapid) Negative (NEGATIVE) Laboratory Tests Test 01/14/22 07:00 White Blood Count 7.6 x10^3/uL (4.0-11.0) Red Blood Count 4.32 x10^6/uL (4.30-5.70) Hemoglobin 14.2 g/dL (13.0-17.5) Hematocrit 41.4 % (39.0-53.0) Mean Corpuscular Volume 96 fL (79-100) Mean Corpuscular Hemoglobin 33 pg (25-35) Mean Corpuscular Hemoglobin Concent 34 g/dL (31-37) Red Cell Distribution Width 12.6 % (11.5-14.5) Platelet Count 100 x10^3/uL (140-400) Neutrophils (%) (Auto) 75 % (31-73) Lymphocytes (%) (Auto) 12 % (24-48) Monocytes (%) (Auto) 12 % (0-9) Eosinophils (%) (Auto) 1 % (0-3) Basophils (%) (Auto) 1 % (0-3) Neutrophils # (Auto) 5.7 x10^3/uL (1.8-7.7) Lymphocytes # (Auto) 0.9 x10^3/uL (1.0-4.8) Monocytes # (Auto) 0.9 x10^3/uL (0.0-1.1) Eosinophils # (Auto) 0.1 x10^3/uL (0.0-0.7) Basophils # (Auto) 0.0 x10^3/uL (0.0-0.2) Sodium Level 140 mmol/L (136-145) Potassium Level 3.9 mmol/L (3.5-5.1) Chloride Level 107 mmol/L (98-107) Carbon Dioxide Level 24 mmol/L (21-32) Anion Gap 9 (6-14) Blood Urea Nitrogen 9 mg/dL (8-26) Creatinine 1.1 mg/dL (0.7-1.3) Estimated GFR (Cockcroft-Gault) 69.2 BUN/Creatinine Ratio 8 (6-20) Glucose Level 103 mg/dL (70-99) Calcium Level 8.0 mg/dL (8.5-10.1) Total Bilirubin 1.8 mg/dL (0.2-1.0) Aspartate Amino Transf (AST/SGOT) 10 U/L (15-37) Alanine Aminotransferase (ALT/SGPT) 6 U/L (16-63) Alkaline Phosphatase 33 U/L (46-116) Total Protein 6.4 g/dL (6.4-8.2) Albumin 2.9 g/dL (3.4-5.0) Albumin/Globulin Ratio 0.8 (1.0-1.7) Microbiology 01/13/22 Blood Culture - Preliminary, Resulted NO GROWTH AFTER 1 DAY 01/12/22 Urine Culture - Final, Complete Medications Current Medications Sodium Chloride 1,000 ml @ 1,000 mls/hr 1X ONCE IV Last administered on 01/13/22at 00:00; Start 01/14/22 at 00:00; Stop 01/13/22 at 14:28; Status DC Ondansetron HCl (Zofran) 4 mg 1X ONCE IVP Last administered on 01/13/22at 00:07; Start 01/13/22 at 00:00; Stop 01/13/22 at 00:01; Status DC Tamsulosin HCl (Flomax) 0.4 mg 1X ONCE PO Last administered on 01/13/22at 00:06; Start 01/13/22 at 00:00; Stop 01/13/22 at 00:01; Status DC Morphine Sulfate (Morphine Sulfate) 4 mg PRN Q15MIN PRN IV/SQ PAIN GREATER THAN 3/10 Last administered on 01/13/22at 02:19; Start 01/12/22 at 23:45; Stop 01/13/22 at 14:29; Status DC Ceftriaxone Sodium (Rocephin) 1 gm 1X ONCE IVP Last administered on 01/13/22at 03:02; Start 01/13/22 at 01:30; Stop 01/13/22 at 01:31; Status DC Ondansetron HCl (Zofran) 4 mg PRN Q8HRS PRN IVP NAUSEA/VOMITING 1ST CHOICE Last administered on 01/13/22at 03:09; Start 01/13/22 at 02:00; Stop 01/13/22 at 06:22; Status DC Morphine Sulfate (Morphine Sulfate) 4 mg PRN Q2HR PRN IVP SEVERE PAIN 7-10 Last administered on 01/13/22at 14:43; Start 01/13/22 at 02:00; Stop 01/13/22 at 15:20; Status DC Sodium Chloride 1,000 ml @ 75 mls/hr 1X ONCE IV Last administered on 01/13/22at 02:30; Start 01/13/22 at 02:30; Stop 01/13/22 at 14:29; Status DC Acetaminophen (Tylenol) 650 mg PRN Q8HRS PRN PO MILD PAIN / TEMP > 100.3'F Last administered on 01/13/22at 08:01; Start 01/13/22 at 06:30; Stop 01/13/22 at 08:06; Status DC Ondansetron HCl (Zofran) 4 mg PRN Q6HRS PRN IVP NAUSEA/VOMITING 1ST CHOICE Last administered on 01/14/22at 13:35; Start 01/13/22 at 06:30 Acetaminophen (Tylenol) 650 mg PRN Q6HRS PRN PO MILD PAIN / TEMP > 100.3'F Last administered on 01/14/22at 05:36; Start 01/13/22 at 08:15 Tamsulosin HCl (Flomax) 0.4 mg BID PO Last administered on 01/14/22at 09:11; Start 01/13/22 at 09:00 Ciprofloxacin/ Dextrose 200 ml @ 200 mls/hr Q12HR IV Last administered on 01/14/22at 09:11; Start 01/13/22 at 09:00 Fentanyl Citrate (Fentanyl 2ml Vial) 25 mcg PRN Q5MIN PRN IVP MILD PAIN 1-3; Start 01/13/22 at 09:45; Stop 01/13/22 at 20:00; Status DC Fentanyl Citrate (Fentanyl 2ml Vial) 50 mcg PRN Q5MIN PRN IVP MODERATE PAIN 4- 6; Start 01/13/22 at 09:45; Stop 01/13/22 at 20:00; Status DC Morphine Sulfate (Morphine Sulfate) 1 mg PRN Q10MIN PRN IVP SEVERE PAIN 7-10; Start 01/13/22 at 09:45; Stop 01/13/22 at 20:00; Status DC Ringer's Solution 1,000 ml @ 30 mls/hr Q24H IV Last administered on 01/13/22at 11:40; Start 01/13/22 at 09:45; Stop 01/13/22 at 14:06; Status DC Hydromorphone HCl (Dilaudid) 0.5 mg PRN Q10MIN PRN IVP SEVERE PAIN 7-10, 2nd CHOICE; Start 01/13/22 at 09:45; Stop 01/13/22 at 20:00; Status DC Prochlorperazine Edisylate (Compazine) 5 mg PACU PRN PRN IVP NAUSEA, MRX1; Start 01/13/22 at 09:45; Stop 01/13/22 at 20:00; Status DC Iohexol (Omnipaque 300 Mg/ml) 50 ml STK-MED ONCE .ROUTE Last administered on 01/13/22at 12:59; Start 01/13/22 at 11:54; Stop 01/13/22 at 11:54; Status DC Lidocaine HCl (Lidocaine Pf 2% Vial) 5 ml STK-MED ONCE .ROUTE ; Start 01/13/22 at 12:30; Stop 01/13/22 at 12:30; Status DC Dexamethasone Sodium Phosphate (Decadron) 4 mg STK-MED ONCE .ROUTE ; Start 01/13/22 at 12:30; Stop 01/13/22 at 12:30; Status DC Ondansetron HCl (Zofran) 4 mg STK-MED ONCE .ROUTE ; Start 01/13/22 at 12:30; Stop 01/13/22 at 12:30; Status DC Propofol (Diprivan) 200 mg STK-MED ONCE IV ; Start 01/13/22 at 12:30; Stop 01/13/22 at 12:30; Status DC Scopolamine (Transderm-Scop) 1 patch 1X ONCE TD Last administered on 01/13/22at 12:40; Start 01/13/22 at 12:45; Stop 01/13/22 at 12:46; Status DC Midazolam HCl (Versed) 2 mg STK-MED ONCE .ROUTE ; Start 01/13/22 at 12:32; Stop 01/13/22 at 12:33; Status DC Ondansetron HCl (Zofran) 4 mg STK-MED ONCE .ROUTE ; Start 01/13/22 at 12:36; Stop 01/13/22 at 12:36; Status DC Scopolamine (Transderm-Scop) 1 patch STK-MED ONCE TD ; Start 01/13/22 at 12:36; Stop 01/13/22 at 12:36; Status DC Lidocaine HCl (Lidocaine Pf 2% Vial) 5 ml STK-MED ONCE .ROUTE ; Start 01/13/22 at 12:52; Stop 01/13/22 at 12:52; Status DC Sodium Chloride (Normal Saline Flush) 3 ml QSHIFT PRN IV AFTER MEDS AND BLOOD DRAWS; Start 01/13/22 at 13:15 Ringer's Solution 1,000 ml @ 100 mls/hr Q10H IV Last administered on 01/14/22at 05:38; Start 01/13/22 at 13:15 Naloxone HCl (Narcan) 0.4 mg PRN Q2MIN PRN IV SEE INSTRUCTIONS; Start 01/13/22 at 13:15 Sodium Chloride 1,000 ml @ 25 mls/hr Q24H IV ; Start 01/13/22 at 13:15; Stop 01/13/22 at 14:29; Status DC Morphine Sulfate (Morphine Sulfate) 2 mg PRN Q2HR PRN IVP SEVERE PAIN 7-10 Last administered on 01/13/22at 19:33; Start 01/13/22 at 15:30 Tramadol HCl (Ultram) 50 mg PRN Q6HRS PRN PO MILD TO MODERATE PAIN; Start 01/13/22 at 15:30 Oxycodone HCl (Roxicodone) 5 mg PRN Q6HRS PRN PO MODERATE TO SEVERE PAIN Last administered on 01/14/22at 13:46; Start 01/13/22 at 15:30 Vitals/I & O Vital Sign - Last 24 Hours 01/13/22 01/13/22 01/13/2210/22 14:43 15:00 15:13 16:01 Temp 103.0 100.9 103.0 100.9 Pulse 91 94 Resp 18 20 B/P (MAP) 143/86 (105) 144/81 (102) Pulse Ox 95 95 95 96 O2 Delivery Nasal Cannula Room Air Nasal Cannula Room Air O2 Flow Rate 2.0 2.0 01/13/22 01/13/22 01/13/22 01/13/22 16:30 17:00 17:54 19:33 Temp 100.4 100.4 Pulse 80 Resp 20 20 20 24 B/P (MAP) 151/92 (111) Pulse Ox 95 O2 Delivery Room Air Room Air Room Air 01/13/22 01/13/22 01/13/22 01/14/22 20:00 20:05 22:40 02:48 Temp 101.1 98.3 101.1 98.3 Pulse 94 86 Resp 20 20 18 B/P (MAP) 143/80 (101) 126/84 (98) Pulse Ox 95 95 O2 Delivery Room Air Room Air Room Air Room Air 01/14/22 01/14/22 01/14/22 01/14/22 05:36 06:43 07:32 09:15 Temp 101.4 98.7 101.4 98.7 Pulse 76 Resp 24 18 B/P (MAP) 143/87 (105) Pulse Ox 94 O2 Delivery Room Air Room Air Room Air 01/14/22 01/14/22 11:19 13:46 Temp 99.1 99.1 Pulse 86 Resp 22 B/P (MAP) 121/78 (92) Pulse Ox 96 O2 Delivery Room Air Room Air Intake and Output 01/13/22 01/13/22 01/14/22 15:00 23:00 07:00 Intake Total 700 ml 600 ml 1200 ml Output Total 200 ml 100 ml 350 ml Balance 500 ml 500 ml 850 ml LACI DESIR January 14, 2022 14:12
[2022-01-14 15:15] VITALS: BP 135/76
--- NOTE | 2022-01-14 15:55 | PDOC ---
[employer] PROGRESS NOTE Date of Service DOS: DATE: 01/14/22 TIME: 15:49 Chief Complaint Chief Complaint Assessment/Plan Left hydroureter - due to obstructive uropathy with nephrolithiasis, signs of sepsis., Status post left ureteral stent placement and lithotripsy. Sepsis - febrile, tachycardic. change to cipro given prostatomegaly. Pending urine culture sensitivities. Elevated bilirubin - will maintain bowel regimen FEN - NPO PPX - SCDs FULL CODE Dispo - inpatient History of Present Illness History of Present Illness 56 year old male with history of kidney stones presenting to the ED overnight complaining of 8 out of 10 bilateral flank pain with nausea, no vomiting, symptoms began 2 days ago. He was seen yesterday at [facility] in [place] and diagnosed with kidney stones. He failed to improve in fact started having fever and chills did not meat pickler medications he was prescribed from the ED, bactrim and flomax. 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 He notes historically has had multiple kidney stones since age 19 at least 12 procedures. Febrile to 102.8 F. CBC with a normal WBC, hemoglobin and hematocrit are normal. CMP with bilirubin of 3.2 otherwise no acute findings. UA positive for small amount of blood, nitrates and large amount of leukocytes. Started on Rocephin in ED. CT of the abdomen and pelvis noted for moderate left obstructive uropathy secondary to a 10 x 5 mm ureteral calculus just distal to the pelvic brim, bilateral nonobstructing renal calculi, urinary bladder calculus, scattered colon diverticulosis, prostatomegaly 01/14/22 No acute events overnight. Patient seen examined bedside. Pain is well controlled. Still some pain during voiding. Status post stent placement by urology. Patient's chart, labs, images were reviewed and discussed with RN Vitals/I&O Vitals/I&O: Vital Signs Date Time Temp Pulse Resp B/P (MAP) Pulse Ox O2 Delivery O2 Flow Rate FiO2 01/14/22 15:15 99.8 69 20 135/76 (95) 96 Room Air 99.8 01/13/22 15:13 2.0 I & O 01/13/22 01/13/22 01/14/22 15:00 23:00 07:00 Intake Total 700 ml 600 ml 1200 ml Output Total 200 ml 100 ml 350 ml Balance 500 ml 500 ml 850 ml Physical Exam General: Alert, Oriented X3, Cooperative, moderate distress Abdomen: Normal bowel sounds, Soft, No hepatosplenomegaly, No masses, Other (Suprapubic and left flank tenderness) Extremities: No clubbing, No cyanosis, No edema, Normal pulses, No tenderness/swelling Skin: No rashes, No breakdown, No significant lesion Labs Labs: Laboratory Tests Test 01/14/22 07:00 White Blood Count 7.6 x10^3/uL (4.0-11.0) Red Blood Count 4.32 x10^6/uL (4.30-5.70) Hemoglobin 14.2 g/dL (13.0-17.5) Hematocrit 41.4 % (39.0-53.0) Mean Corpuscular Volume 96 fL (79-100) Mean Corpuscular Hemoglobin 33 pg (25-35) Mean Corpuscular Hemoglobin Concent 34 g/dL (31-37) Red Cell Distribution Width 12.6 % (11.5-14.5) Platelet Count 100 x10^3/uL (140-400) Neutrophils (%) (Auto) 75 % (31-73) Lymphocytes (%) (Auto) 12 % (24-48) Monocytes (%) (Auto) 12 % (0-9) Eosinophils (%) (Auto) 1 % (0-3) Basophils (%) (Auto) 1 % (0-3) Neutrophils # (Auto) 5.7 x10^3/uL (1.8-7.7) Lymphocytes # (Auto) 0.9 x10^3/uL (1.0-4.8) Monocytes # (Auto) 0.9 x10^3/uL (0.0-1.1) Eosinophils # (Auto) 0.1 x10^3/uL (0.0-0.7) Basophils # (Auto) 0.0 x10^3/uL (0.0-0.2) Sodium Level 140 mmol/L (136-145) Potassium Level 3.9 mmol/L (3.5-5.1) Chloride Level 107 mmol/L (98-107) Carbon Dioxide Level 24 mmol/L (21-32) Anion Gap 9 (6-14) Blood Urea Nitrogen 9 mg/dL (8-26) Creatinine 1.1 mg/dL (0.7-1.3) Estimated GFR (Cockcroft-Gault) 69.2 BUN/Creatinine Ratio 8 (6-20) Glucose Level 103 mg/dL (70-99) Calcium Level 8.0 mg/dL (8.5-10.1) Total Bilirubin 1.8 mg/dL (0.2-1.0) Aspartate Amino Transf (AST/SGOT) 10 U/L (15-37) Alanine Aminotransferase (ALT/SGPT) 6 U/L (16-63) Alkaline Phosphatase 33 U/L (46-116) Total Protein 6.4 g/dL (6.4-8.2) Albumin 2.9 g/dL (3.4-5.0) Albumin/Globulin Ratio 0.8 (1.0-1.7) Assessment and Plan Assessmemt and Plan Problems Medical Problems: (1) Acute pyelonephritis Status: Acute (2) Bilateral kidney stones Status: Acute (3) Left ureteral calculus Status: Acute Comment Review of Relevant I have reviewed the following items maurice (where applicable) has been applied. Medications: Current Medications Medications (Trade) Dose Ordered Sig/Marilynn Route PRN Reason Start Time Stop Time Status Last Admin Dose Admin Sodium Chloride 1,000 ml @ 1,000 mls/hr 1X ONCE IV 01/14/22 00:00 01/13/22 14:28 DC 01/13/22 00:00 Justifications for Admission Other Justification KARRI VEGAS MD January 14, 2022 15:55
[2022-01-14 18:28] VITALS: BP 135/81
[2022-01-14 22:59] VITALS: BP 128/78
[2022-01-15] MEDS: MORPHINE SULFATE 2 MG/ML INJ. IVP PRN ×3 (01:11→20:38)
--- NOTE | 2022-01-15 01:18 | NUR ---
Patient C/O pain, Morphine SIVP given. Patient has voided 550 ml this shift. Bladder scan showed >599ml. Informed Patient of need to straight cath him. Patient refused to have straight cath done. Encouraged him to void more frequently to try and keep bladder emptier.
[2022-01-15 03:14] VITALS: BP 150/90
[2022-01-15] MEDS: IV RINGERS,LACTATED 1000ML 1,000 ML IV SCH ×2 (05:41→15:15)
[2022-01-15] MEDS: oxyCODONE IR 5 MG TABLET PO PRN ×4 (05:47→21:46)
[2022-01-15 06:15] VITALS: BP 116/81
[2022-01-15] MEDS: PHENAZOPYRIDINE 200 MG TABLET. PO PRN ×2 (08:33→17:04)
[2022-01-15] MEDS: CIPROFLOXACIN 400MG PREMIX 200 ML IV SCH ×2 (08:34→20:41)
[2022-01-15] MEDS: TAMSULOSIN 0.4 MG CAP.ER.24H. PO SCH ×2 (08:34→20:38)
[2022-01-15] MEDS ORDERED: SENNOSIDES/DOCUSATE 8.6/50MG TABLET. PO PRN (10:45)
[2022-01-15] MEDS ORDERED: POLYETHYLENE GLYCOL 3350 17 GM PACKET. PO PRN (10:45)
[2022-01-15 11:00] VITALS: BP 146/87
--- NOTE | 2022-01-15 13:14 | PDOC ---
PROGRESS NOTE DATE OF SERVICE: DATE: 01/15/22 TIME: 13:09 CHIEF COMPLAINT: retaining urine, unable to void required straight cath x 2 very adament he does not want malagon, does not want to learn CIC SUBJECTIVE: HPI: Duration: [] Quality: [] Severity: [] Site/Location: [] Problems: Problems Medical Problems: (1) Acute pyelonephritis Status: Acute (2) Bilateral kidney stones Status: Acute (3) Left ureteral calculus Status: Acute OBJECTIVE: Vital Signs: Vital Signs Date Time Temp Pulse Resp B/P (MAP) Pulse Ox O2 Delivery O2 Flow Rate FiO2 01/15/22 11:00 99.6 52 14 146/87 (106) 96 Room Air 99.6 01/15/22 10:43 95 Room Air 01/15/22 10:09 Room Air 01/15/22 08:10 Room Air 01/15/22 06:17 Room Air 01/15/22 06:15 97.6 71 18 116/81 (93) 95 Room Air 97.6 01/15/22 05:47 18 95 Room Air 01/15/22 03:14 99.5 74 18 150/90 (110) 95 Room Air 99.5 01/15/22 01:41 Room Air 01/15/22 01:11 20 95 Room Air 01/14/22 22:59 99.5 64 16 128/78 (95) 95 Room Air 99.5 01/14/22 19:40 Room Air 01/14/22 18:28 99.3 76 20 135/81 (99) 94 Room Air 99.3 01/14/22 15:15 99.8 69 20 135/76 (95) 96 Room Air 99.8 01/14/22 14:15 Room Air 01/14/22 13:46 Room Air I & O Intake and Output 01/15/22 07:00 Intake Total 3160 ml Output Total 3275 ml Balance -115 ml Intake Oral 1960 ml IV Total 1200 ml Output Urine Total 3275 ml Bladder Scan Volume Amount PHYSICAL EXAM: Physical Exam: General: Pleasant, no acute distress, well groomed Eyes: conjunctiva anicteric, eyes full range of motion ENT: moist oral mucosa, normal dentition Neck: Trachea midline, no masses Respiratory: unlabored breathing, not using accessory muscles Abdomen: nontender, nondistended, no hepatosplenomegaly, no masses, no CVA tenderness Skin: no rashes or skin lesions on visualized skin Psych: normal mood, affect. Alert and oriented x 3. LABS: Laboratory Tests Test 01/12/22 23:38 01/12/22 23:43 01/13/22 09:28 01/14/22 07:00 White Blood Count 9.3 x10^3/uL (4.0-11.0) 7.6 x10^3/uL (4.0-11.0) Red Blood Count 4.69 x10^6/uL (4.30-5.70) 4.32 x10^6/uL (4.30-5.70) Hemoglobin 15.7 g/dL (13.0-17.5) 14.2 g/dL (13.0-17.5) Hematocrit 45.0 % (39.0-53.0) 41.4 % (39.0-53.0) Mean Corpuscular Volume 96 fL (79-100) 96 fL (79-100) Mean Corpuscular Hemoglobin 33 pg (25-35) 33 pg (25-35) Mean Corpuscular Hemoglobin Concent 35 g/dL (31-37) 34 g/dL (31-37) Red Cell Distribution Width 13.0 % (11.5-14.5) 12.6 % (11.5-14.5) Platelet Count 144 x10^3/uL (140-400) 100 x10^3/uL (140-400) Neutrophils (%) (Auto) 80 % (31-73) 75 % (31-73) Lymphocytes (%) (Auto) 10 % (24-48) 12 % (24-48) Monocytes (%) (Auto) 9 % (0-9) 12 % (0-9) Eosinophils (%) (Auto) 0 % (0-3) 1 % (0-3) Basophils (%) (Auto) 0 % (0-3) 1 % (0-3) Neutrophils # (Auto) 7.5 x10^3/uL (1.8-7.7) 5.7 x10^3/uL (1.8-7.7) Lymphocytes # (Auto) 0.9 x10^3/uL (1.0-4.8) 0.9 x10^3/uL (1.0-4.8) Monocytes # (Auto) 0.9 x10^3/uL (0.0-1.1) 0.9 x10^3/uL (0.0-1.1) Eosinophils # (Auto) 0.0 x10^3/uL (0.0-0.7) 0.1 x10^3/uL (0.0-0.7) Basophils # (Auto) 0.0 x10^3/uL (0.0-0.2) 0.0 x10^3/uL (0.0-0.2) Sodium Level 141 mmol/L (136-145) 140 mmol/L (136-145) Potassium Level 4.0 mmol/L (3.5-5.1) 3.9 mmol/L (3.5-5.1) Chloride Level 106 mmol/L (98-107) 107 mmol/L (98-107) Carbon Dioxide Level 24 mmol/L (21-32) 24 mmol/L (21-32) Anion Gap 11 (6-14) 9 (6-14) Blood Urea Nitrogen 9 mg/dL (8-26) 9 mg/dL (8-26) Creatinine 1.2 mg/dL (0.7-1.3) 1.1 mg/dL (0.7-1.3) Estimated GFR (Cockcroft-Gault) 62.6 69.2 BUN/Creatinine Ratio 8 (6-20) 8 (6-20) Glucose Level 109 mg/dL (70-99) 103 mg/dL (70-99) Calcium Level 8.6 mg/dL (8.5-10.1) 8.0 mg/dL (8.5-10.1) Total Bilirubin 3.2 mg/dL (0.2-1.0) 1.8 mg/dL (0.2-1.0) Aspartate Amino Transf (AST/SGOT) 12 U/L (15-37) 10 U/L (15-37) Alanine Aminotransferase (ALT/SGPT) 16 U/L (16-63) 6 U/L (16-63) Alkaline Phosphatase 46 U/L (46-116) 33 U/L (46-116) Total Protein 7.3 g/dL (6.4-8.2) 6.4 g/dL (6.4-8.2) Albumin 3.8 g/dL (3.4-5.0) 2.9 g/dL (3.4-5.0) Albumin/Globulin Ratio 1.1 (1.0-1.7) 0.8 (1.0-1.7) Lipase 28 U/L (73-393) Urine Collection Type Unknown Urine Color (Auto) Yellow Urine Turbidity Hazy Urine pH (Auto) 6.5 (<5.0-8.0) Urine Specific [place] 1.012 (1.000-1.030) Urine Protein (Auto) Negative mg/dL (Negative) Urine Glucose (Auto)(UA) Negative mg/dL (Negative) Urine Ketones (Auto) 20 mg/dL (Negative) Urine Blood (Auto) Small (Negative) Urine Nitrite Positive (Negative) Urine Bilirubin (Auto) Negative (Negative) Urine Urobilinogen (Auto) Normal mg/dL (Normal) Urine Leukocyte Esterase (Auto) Large (Negative) Urine RBC 0 /HPF (0-2) Urine WBC 5-10 /HPF (0-4) Urine Bacteria Moderate /HPF (0-FEW) Urine Chlamydia DNA (PCR) Negative (Negative) Neisseria gonorrhoeae DNA (PCR) Negative (Negative) Coronavirus (COVID-19)(PCR) Not detected (NOT DETECTD) SARS-CoV-2 Antigen (Rapid) Negative (NEGATIVE) Microbiology 01/13/22 Blood Culture - Preliminary, Resulted NO GROWTH AFTER 2 DAYS 01/12/22 Urine Culture - Final, Complete MEDICATIONS: Current Medications Medications (Trade) Dose Ordered Sig/Marilynn Start Time Stop Time Status Last Admin Dose Admin Acetaminophen (Tylenol) 650 mg PRN Q6HRS PRN 01/13/22 08:15 01/14/22 15:18 650 MG Ceftriaxone Sodium (Rocephin) 1 gm 1X ONCE 01/13/22 01:30 01/13/22 01:31 DC 01/13/22 03:02 1 GM Ciprofloxacin/ Dextrose 200 ml @ 200 mls/hr Q12HR 01/13/22 09:00 01/15/22 08:34 200 MLS/HR Dexamethasone Sodium Phosphate (Decadron) 4 mg STK-MED ONCE 01/13/22 12:30 01/13/22 12:30 DC Docusate Sodium (Colace) 100 mg BID 01/15/22 21:00 Fentanyl Citrate (Fentanyl 2ml Vial) 50 mcg PRN Q5MIN PRN 01/13/22 09:45 01/13/22 20:00 DC Hydromorphone HCl (Dilaudid) 0.5 mg PRN Q10MIN PRN 01/13/22 09:45 01/13/22 20:00 DC Iohexol (Omnipaque 300 Mg/ml) 50 ml STK-MED ONCE 01/13/22 11:54 01/13/22 11:54 DC 01/13/22 12:59 10 ML Lidocaine HCl (Lidocaine Pf 2% Vial) 5 ml STK-MED ONCE 01/13/22 12:52 01/13/22 12:52 DC Midazolam HCl (Versed) 2 mg STK-MED ONCE 01/13/22 12:32 01/13/22 12:33 DC Morphine Sulfate (Morphine Sulfate) 2 mg PRN Q2HR PRN 01/13/22 15:30 01/15/22 10:09 2 MG Naloxone HCl (Narcan) 0.4 mg PRN Q2MIN PRN 01/13/22 13:15 Ondansetron HCl (Zofran) 4 mg STK-MED ONCE 01/13/22 12:36 01/13/22 12:36 DC Oxycodone HCl (Roxicodone) 5 mg PRN Q4HRS PRN 01/15/22 10:45 Phenazopyridine HCl (Pyridium) 200 mg PRN TID PRN 01/14/22 14:15 01/15/22 08:33 200 MG Polyethylene Glycol (miraLAX PACKET) 17 gm PRN DAILY PRN 01/15/22 10:45 Prochlorperazine Edisylate (Compazine) 5 mg PACU PRN PRN 01/13/22 09:45 01/13/22 20:00 DC Propofol (Diprivan) 200 mg STK-MED ONCE 01/13/22 12:30 01/13/22 12:30 DC Ringer's Solution 1,000 ml @ 100 mls/hr Q10H 01/13/22 13:15 01/15/22 05:41 100 MLS/HR Scopolamine (Transderm-Scop) 1 patch STK-MED ONCE 01/13/22 12:36 01/13/22 12:36 DC Senna/Docusate Sodium (Senna Plus) 2 tab PRN BID PRN 01/15/22 10:45 Sodium Chloride 1,000 ml @ 25 mls/hr Q24H 01/13/22 13:15 01/13/22 14:29 DC Sodium Chloride (Normal Saline Flush) 3 ml QSHIFT PRN 01/13/22 13:15 Tamsulosin HCl (Flomax) 0.4 mg BID 01/13/22 09:00 01/15/22 08:34 0.4 MG Tramadol HCl (Ultram) 50 mg PRN Q6HRS PRN 01/13/22 15:30 ASSESSMENT & PLAN reviewed CT a/p images. Moderate left hydronephrosis, 1cm distal left ureter stone UA with bacteria. 102.8F Tmax. Concern for sepsis. s/p Cystoscopy, left ureteral stent placement reviewed with patient. Needs 14 day course culture specific abx He will need ureteroscopy in 10-14 days after infection has resolved. We will arrange this with him. Keep NPO. procedure at [address] Cervantes. Bladder stone Likely has poor bladder emptying secondary to prostate enlargement Check PVR. Tamsulosin. Cystolitholapaxy concurrent with ureteroscopy after infection resolved as above. Urinary retention Required straight cath x 2 Increase Flomax to BID Long discussion with pt need for malagon so he could be discharged. He does not want malagon or to learn CIC. He feels he is emptying bladder well enough and does not need further drainage. PVR >500cc. I discussed risks of retention including worsening infection, renal damage requiring dialysis, etc. He understands risks but does not want malagon. Should pt change mind -- may dc with malagon and do in office voiding trial in 1-2 weeks. Please call with urology concerns. Problem List: Problems Medical Problems: (1) Acute pyelonephritis Status: Acute (2) Bilateral kidney stones Status: Acute (3) Left ureteral calculus Status: Acute ROJELIO ORTIZ January 15, 2022 13:14
[2022-01-15 14:36] VITALS: BP 156/94
[2022-01-15] MEDS: ONDANSETRON PF 4 MG/2 ML VIAL. IVP PRN (14:36)
--- NOTE | 2022-01-15 15:57 | NUR ---
Bladder scan q 4 today per urology has been >500ml. One straight cath done my shift and 550ml retrieved. At 1600 another bladder scan shows >500 in bladder. Pt agrees to malagon insertion at this time. Will insert per protocol. He has been nauseous today and would like to stay one more night. Discussed with doctor.
[2022-01-15 19:00] VITALS: BP 158/89
[2022-01-15] MEDS: DOCUSATE SODIUM 100 MG CAPSULE. PO SCH (20:38)
[2022-01-15] MEDS: LACTOBACILLUS RHAMNOSUS GG 1 CAPSULE. PO SCH (20:38)
[2022-01-15 22:58] VITALS: BP 118/79
[2022-01-16] MEDS: IV RINGERS,LACTATED 1000ML 1,000 ML IV SCH ×2 (01:05→11:08)
[2022-01-16] MEDS: PHENAZOPYRIDINE 200 MG TABLET. PO PRN ×2 (01:10→08:21)
[2022-01-16] MEDS: MORPHINE SULFATE 2 MG/ML INJ. IVP PRN ×3 (01:10→13:43)
[2022-01-16 02:58] VITALS: BP 125/83
[2022-01-16] MEDS: oxyCODONE IR 5 MG TABLET PO PRN ×3 (05:43→16:24)
[2022-01-16 06:33] VITALS: BP 124/88
[2022-01-16] MEDS: LACTOBACILLUS RHAMNOSUS GG 1 CAPSULE. PO SCH (08:21)
[2022-01-16] MEDS: TAMSULOSIN 0.4 MG CAP.ER.24H. PO SCH (08:21)
[2022-01-16] MEDS: DOCUSATE SODIUM 100 MG CAPSULE. PO SCH (08:21)
[2022-01-16] MEDS: CIPROFLOXACIN 400MG PREMIX 200 ML IV SCH (08:22)
[2022-01-16 11:04] VITALS: BP 128/85
[2022-01-16] MEDS: ONDANSETRON PF 4 MG/2 ML VIAL. IVP PRN (13:42)
[2022-01-16] MEDS ORDERED: TAMS0.4C97 PO (14:31)
[2022-01-16] MEDS ORDERED: PHEN-444 PO (14:31)
[2022-01-16] MEDS ORDERED: CIPR250T PO (14:31)
[2022-01-16] MEDS ORDERED: HYDR-2761 PO (14:31)
--- NOTE | 2022-01-16 14:33 | DISCH ---
DISCHARGE INSTRUCTIONS Condition on Discharge Condition on Discharge: Stable Activity After Discharge Activity Instructions for Disc: Resume previous activity Exercise Instruction after Dis: Walk 30 min, 3 x per week Driving Instructions after Dis: Do not drive today Weight Bearing Status after Di: Full weight bearing Diet after Discharge Diet after Discharge: Cardiac Wound Incision Care Wound/Incision Care: Routine catheter care (Keep Muro in place do not remove) Follow-Up Follow up with: Urology will call you in 1 week for possible stent removal and lithotripsy Follow Up With: PCP within 2 weeks of discharge KARRI VEGAS MD January 16, 2022 14:33
[2022-01-16 15:00] VITALS: BP 133/86
--- NOTE | 2022-01-16 16:40 | NUR ---
Pt DC home in stable condition with belongings per wheelchair accompanied by friend. SL removed, cath intact. DC instructions, medications and follow up information reviewed. Pt denies having questions.
--- NOTE | 2022-01-18 12:34 | PDOC3 ---
[facility]-Discharge Summary Date of Admission: Date of Admission: January 13, 2022 Date of Discharge: Date of Discharge: January 16, 2022 Discharge Diagnosis: Discharge Diagnosis: Left hydroureter - due to obstructive uropathy with nephrolithiasis, signs of sepsis., Status post left ureteral stent placement and lithotripsy. Sepsis - febrile, tachycardic. change to cipro given prostatomegaly. Pending urine culture sensitivities. Elevated bilirubin - will maintain bowel regimen Consults: Consults: per Urology: reviewed CT a/p images. Moderate left hydronephrosis, 1cm distal left ureter stone UA with bacteria. 102.8F Tmax. Concern for sepsis. s/p Cystoscopy, left ureteral stent placement reviewed with patient. Needs 14 day course culture specific abx He will need ureteroscopy in 10-14 days after infection has resolved. We will arrange this with him. Keep NPO. procedure at [address] Cervantes. Bladder stone Likely has poor bladder emptying secondary to prostate enlargement Check PVR. Tamsulosin. Cystolitholapaxy concurrent with ureteroscopy after infection resolved as above. Urinary retention Required straight cath x 2 Increase Flomax to BID Long discussion with pt need for malagon so he could be discharged. He does not want malagon or to learn CIC. He feels he is emptying bladder well enough and does not need further drainage. PVR >500cc. I discussed risks of retention including worsening infection, renal damage requiring dialysis, etc. He understands risks but does not want malagon. Should pt change mind -- may dc with malagon and do in office voiding trial in 1-2 weeks. Please call with urology concerns. Hospital Course: Hospital Course: 56 year old male with history of kidney stones presenting to the ED overnight complaining of 8 out of 10 bilateral flank pain with nausea, no vomiting, symptoms began 2 days ago. He was seen yesterday at [facility] in [place] and diagnosed with kidney stones. 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 He notes historically has had multiple kidney stones since age 19 at least 12 procedures. Febrile to 102.8 F. CBC with a normal WBC, hemoglobin and hematocrit are normal. CMP with bilirubin of 3.2 otherwise no acute findings. UA positive for small amount of blood, nitrates and large amount of leukocytes. Started on Rocephin in ED. CT of the abdomen and pelvis noted for moderate left obstructive uropathy secondary to a 10 x 5 mm ureteral calculus just distal to the pelvic brim, bilateral nonobstructing renal calculi, urinary bladder calculus, scattered colon diverticulosis, prostatomegaly 01/14/22 No acute events overnight. Patient seen examined bedside. Pain is well controlled. Still some pain during voiding. Status post stent placement by urology. Patient's chart, labs, images were reviewed and discussed with RN By time of discharge patient was clinically stable. He will need to go home with a Malagon and follow-up within 1 to 2 weeks for stent removal. He will also be discharged with ciprofloxacin for 2 weeks. Narcotic pain medication and phenazopyridine was provided for pain relief. Rest of hospital course was uneventful. Disposition: Disposition/Orders: D/C to Home Activity: Activity: Resume previous activity Diet: Diet: Regular Medications: Home Meds Active Scripts Ciprofloxacin Hcl (CIPROFLOXACIN HCL) 250 Mg Tablet, 1 TAB PO BID for ureteral stent for 14 Days, #28 TAB Prov:KARRI VEGAS MD 01/16/22 Phenazopyridine Hcl (PHENAZOPYRIDINE HCL) 200 Mg Tablet, 200 MG PO PRN TID PRN for URINARY PAIN for 30 Days, #90 TAB Prov:KARRI VEGAS MD 01/16/22 Hydrocodone Bit/Acetaminophen (HYDROCODONE-APAP 5-325 ) 1 Tab Tablet, 1 TAB PO PRN Q6HRS PRN for PAIN for 5 Days, #20 TAB 0 Refills Prov:KARRI VEGAS MD 01/16/22 Tamsulosin Hcl (FLOMAX) 0.4 Mg Cap.er.24h, 0.4 MG PO BID for kidney stones for 30 Days, #60 CAP.SR 2 Refills Prov:KARRI VEGAS MD 01/16/22 Scheduled Ciprofloxacin Hcl (Ciprofloxacin Hcl), 1 TAB PO BID Tamsulosin Hcl (Flomax), 0.4 MG PO BID Scheduled PRN Hydrocodone Bit/Acetaminophen (Hydrocodone-Apap 5-325 ), 1 TAB PO PRN Q6HRS PRN for PAIN Phenazopyridine Hcl (Phenazopyridine Hcl), 200 MG PO PRN TID PRN for URINARY PAIN Total Time: Total Time: Total time spent was 34 minutes in preparing scripts, discharge planning with SWI and RN and preparing this discharge summary Patient seen and examined on day of discharge. No acute abnormal findings. Justicifation of Admission Dx: Justifications for Admission: Justification of Admission Dx: Yes Sepsis: Infection KARRI VEGAS MD January 18, 2022 12:34
== END 2022-01-16 16:40 | disposition home or self-care (01) | DRG 854 ==
LOC: ER 23:26 → 6 SOUTH 01-13 01:44 → 4 SOUTHEST 01-13 15:55
PROVIDERS: ADMIT Internal Medicine; ATTEND Internal Medicine
PROC: BT1F1ZZ Fluoroscopy of Left Kidney, Ureter and Bladder using Low Osmolar Contrast (ICD-10-PCS; 2022-01-13)
PROC: 0T778DZ Dilation of Left Ureter with Intraluminal Device, Via Natural or Artificial Opening Endoscopic (ICD-10-PCS; principal; 2022-01-13 12:30)
DX: A41.9 Sepsis, unspecified organism (principal); N10 Acute pyelonephritis; N13.6 Pyonephrosis; R17 Unspecified jaundice; N21.0 Calculus in bladder; K57.30 Diverticulosis of large intestine without perforation or abscess without bleeding; N40.0 Benign prostatic hyperplasia without lower urinary tract symptoms; Z82.49 Family history of ischemic heart disease and other diseases of the circulatory system; Z87.442 Personal history of urinary calculi; Z20.822 Contact with and (suspected) exposure to COVID-19; Z88.8 Allergy status to other drugs, medicaments and biological substances
CPT/HCPCS: 36415; 74176; 76000; 80053; 81001; 83690; 85025; 87040; 87086; 87426; 87491; 87591; 96361; 96374; 96375; 96376; A4657; A4930; C1758; C1769; C2617; J0696; J0744; J1100; J2250; J2270; J2405; J2704; J7030; J7120; Q9967; U0003; 99285-25; G0378